=== PATIENT | male | born 1950 | race Caucasian/White ===

== ENCOUNTER 2017-04-18 08:38 | Observation (INO) | payer OTHER ==
[2017-04-18 10:01] LABS: BASO # 0.1 # (0.1-1); BASO % 1.2 % (0-2.0); EOS # 0.1 # (0-4.5); EOS % 3.1 % (0-4.5); LYMPH # 1.5 (8-40); MCH 30.5 pg (25.7-33.7); MCHC 32.6 g/dl (32.0-35.9); MEAN CELL VOLUME 93.6 fl (80-96); MEAN PLT VOLUME 9.6 fl (7.5-11.1); MONO # 0.6 # (3.8-10.2); NEUT # 2.1 # (42.8-82.8); NEUT % 47.4 % (42.8-82.8); PLATELET COUNT 173 K/MM3 (134-434); RDW 13.1 % (11.9-15.9); WHITE BLOOD COUNT 4.5 K/mm3 (4.0-10.0)
--- NOTE | 2017-04-18 10:13 | PDOC ---
*Physical Exam - Vital Signs Last Vital Signs Temp Pulse Resp BP Pulse Ox 97.5 F L 65 18 132/98 100 04/18/17 08:41 04/18/17 08:41 04/18/17 08:41 04/18/17 08:41 04/18/17 08:45 ED Treatment Course - LABORATORY CBC & Chemistry Diagram: 04/18/17 09:50 04/18/17 09:50 - ADDITIONAL ORDERS Additional order review: Laboratory Results 04/18/17 09:50 Sodium Cancelled Potassium Cancelled Chloride Cancelled Carbon Dioxide Cancelled Anion Gap Cancelled BUN Cancelled Creatinine Cancelled Creat Clearance w eGFR Cancelled Random Glucose Cancelled Calcium Cancelled Total Bilirubin Cancelled AST Cancelled ALT Cancelled Alkaline Phosphatase Cancelled Total Protein Cancelled Albumin Cancelled 04/18/17 09:50 RBC 4.74 MCV 93.6 MCHC 32.6 RDW 13.1 MPV 9.6 Neutrophils % 47.4 Lymphocytes % 34.2 Monocytes % 14.1 H Eosinophils % 3.1 Basophils % 1.2 Medical Decision Making - Medical Decision Making 04/18/17 10:13 Pt seen by the Advanced Practice Provider under my direct supervision Ancillary studies reviewed I agree with plan as outlined by the Advanced Practice Provider MEME Elmore *DC/Admit/Observation/Transfer Diagnosis at time of Disposition: Syncope - Discharge Dispostion Condition at time of disposition: Guarded - Referrals - Patient Instructions - Post Discharge Activity
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
[2017-04-18 10:40] LABS: ALBUMIN 3.8 g/dl (3.4-5.0); ANION GAP 10 (8-16); BILIRUBIN,TOTAL 0.6 mg/dL (0.2-1.0); CALCIUM 8.7 mg/dL (8.5-10.1); CO2 24 mmol/L (21-32); CREATININE 1.1 mg/dL (0.7-1.3); GLUCOSE,RANDOM 102 mg/dL (74-106); SGOT/AST 11 U/L (15-37); SGPT/ALT 20 U/L (12-78); TOT PROT 6.6 g/dl (6.4-8.2)
[2017-04-18 10:43] LABS: ALK PHOS 69 U/L (45-117); CPK 77 IU/L (39-308); TROPONIN I < 0.02 ng/ml (0.00-0.05)
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
--- NOTE | 2017-04-18 13:44 | EKG ---
Test Reason : Blood Pressure : / mmHG Vent. Rate : 052 BPM Atrial Rate : 052 BPM P-R Int : 176 ms QRS Dur : 090 ms QT Int : 420 ms P-R-T Axes : 047 035 058 degrees QTc Int : 390 ms MARKED SINUS BRADYCARDIA NO PREVIOUS ECGS AVAILABLE Confirmed by JUNE KENT MD ([id number]) on 04/18/2017 1:44:24 PM Referred By: Confirmed By:JUNE KENT MD
[2017-04-18 17:03] VITALS: BMI 24.4
[2017-04-18 17:14] LABS: INR 1.03 (0.82-1.09); PROTHROMBIN TIME (PATIENT) 11.6 SEC (9.98-11.88)
[2017-04-18] MEDS: HEPARIN NA (PORCINE) 5,000 UNITS/ML 1ML VIAL SQ SCH (17:37)
--- NOTE | 2017-04-18 17:48 | CON.CARD ---
Consult Consult Specialty:: Cardiology Referred by:: Hospitalist Medicine Reason for Consultation:: Syncope - History of Present Illness Chief Complaint: Syncope History of Present Illness: This is 66-year-old male with past medical history of hypertension, hyperlipidemia, BPH, HSV who presented to the emergency department today with prodeomal symptoms of lightheadedness, diaphoresis, flushing feeling followed by syncopal episode witnessed by son with quick return to consciousness. Patient denies chest pain, palpitations, orthopnea, PND, LE edema, change in exercise capacity, positional dizziness, nausea, emesis, abd pain. He reports remote history of micturition syncope. - History Source History Provided By: Patient Limitations to Obtaining History: No Limitations - Past Medical History Cardio/Vascular: Yes: HTN, Hyperlipdemia - Alcohol/Substance Use Hx Alcohol Use: No - Smoking History Smoking history: Former smoker Have you smoked in the past 12 months: No If you are a former smoker, when did you quit?: 5 yrs ago Home Medications - Allergies Allergies/Adverse Reactions: Allergies Allergy/AdvReac Type Severity Reaction Status Date / Time No Known Allergies Allergy Verified 04/18/17 08:41 - Home Medications Home Medications: Ambulatory Orders Escitalopram Oxalate [Lexapro -] 10 mg PO DAILY 04/18/17 Sildenafil Citrate [Viagra] 25 mg PO DAILY PRN 04/18/17 Tamsulosin HCl [Flomax] 0.4 mg PO DAILY 04/18/17 Valacyclovir HCl [Valtrex -] 500 mg PO DAILY 04/18/17 Review of Systems - Review of Systems Neurological: reports: Syncope Vital Signs: Vital Signs Temperature 97.9 F 04/18/17 16:42 Pulse Rate 72 04/18/17 16:42 Respiratory Rate 18 04/18/17 16:42 Blood Pressure 124/80 04/18/17 16:42 O2 Sat by Pulse Oximetry (%) 95 04/18/17 16:42 Constitutional: Yes: No Distress, Calm Neck: Yes: Supple, Other (No response to carotid sinus massage) Respiratory: Yes: Regular, CTA Bilaterally Gastrointestinal: Yes: Normal Bowel Sounds, Soft Cardiovascular: Yes: Regular Rate and Rhythm JVD: No Carotid Bruit: No Heart Sounds: Yes: S1, S2 Edema: No - Other Data Labs, Other Data: CBC, BMP 04/18/17 09:50 04/18/17 09:50 Troponin, BNP 12/22/17 12/22/17 09:43 16:00 Troponin I < 0.02 < 0.02 B-Natriuretic Peptide 12.54 Troponin, BNP 04/18/17 04/18/17 09:43 16:00 Troponin I < 0.02 < 0.02 B-Natriuretic Peptide 12.54 SB @ 52 QTc 390 msec Imaging - Results Chest X-ray: Report Reviewed (NAD) Cat Scan: Report Reviewed (HCT: No acute changes) Problem List - Problems (1) Erectile dysfunction Code(s): N52.9 - MALE ERECTILE DYSFUNCTION, UNSPECIFIED Qualifiers: Erectile dysfunction type: unspecified Qualified Code(s): N52.9 - Male erectile dysfunction, unspecified (2) Syncope Code(s): R55 - SYNCOPE AND COLLAPSE Qualifiers: Syncope type: vasovagal syncope Qualified Code(s): R55 - Syncope and collapse Assessment/Plan 04/18/2017 Echo: Normal biventricular size and fxn, mild MR, TR 1. Syncope with typical prodromal sxs: Vasovagal, neurocardiogenic etiology 2. Hypertension 3. Family h/o premature CAD (Father passed IA in early 50's) 4. Erectile dysfunction 5. BPH 6. Depression P:1. Monitor telemetry to r/o pauses 2. Check orthostasis, gentle hydration, reviewed abortive maneuvers once prodromal sxs experienced 3. Likely for d/c in AM with f/u in office , may consider upright tilt table testing as outpatient to confirm diagnosis 4. Thank you for consultative opportunity
[2017-04-18 18:48] LABS: URINE MARIJUANA THC POSITIVE ng/ml (CUTOFF=50)
[2017-04-19] MEDS: HEPARIN NA (PORCINE) 5,000 UNITS/ML 1ML VIAL SQ SCH ×2 (01:39→09:51)
[2017-04-19 08:06] LABS: EOS # 0.2 # (0-4.5); EOS % 4.6 % (0-4.5); LYMPH # 1.3 (8-40); MCH 30.3 pg (25.7-33.7); MCHC 32.5 g/dl (32.0-35.9); MEAN PLT VOLUME 9.4 fl (7.5-11.1); MONO # 0.5 # (3.8-10.2); NEUT % 50.3 % (42.8-82.8); PLATELET COUNT 156 K/MM3 (134-434); RDW 13.3 % (11.9-15.9)
[2017-04-19] MEDS ORDERED: TAMSULOSIN HCL 0.4 MG CAP.ER.24H (FP) PO SCH (08:30)
[2017-04-19 08:33] LABS: ALBUMIN 3.3 g/dl (3.4-5.0); ANION GAP 8 (8-16); CO2 27 mmol/L (21-32); MAGNESIUM 2.3 mg/dL (1.8-2.4)
[2017-04-19 08:40] LABS: ALK PHOS 65 U/L (45-117); BILIRUBIN,TOTAL 0.7 mg/dL (0.2-1.0); CHOLESTEROL 175 mg/dL (50-200); CREATININE 1.1 mg/dL (0.7-1.3); GLUCOSE,RANDOM 87 mg/dL (74-106); PHOSPHOROUS 3.7 mg/dL (2.5-4.9); SGOT/AST 11 U/L (15-37); SGPT/ALT 19 U/L (12-78); TOT PROT 5.9 g/dl (6.4-8.2)
[2017-04-19] MEDS ORDERED: PT OWN MED DRAWER 7, Y5N ONE (09:45)
[2017-04-19] MEDS ORDERED: ESCITALOPRAM OXALATE 10 MG TABLET (FP) PO SCH (10:00)
[2017-04-19] MEDS ORDERED: valACYclovir HCL 500 MG TABLET (FP) PO SCH (10:00)
--- NOTE | 2017-04-19 10:47 | PN ---
Progress Note, Physician History of Present Illness: Denies recurrent symptoms of near or true syncope, possible 3.74 sec pause on telemetry (asymptomatic) at 04/18 1804. - Current Medication List Current Medications: Active Medications Escitalopram Oxalate (Lexapro -) 10 mg PO DAILY [facility] Last Admin: 04/19/17 09:52 Dose: 5 mg Heparin Sodium (Porcine) (Heparin -) 5,000 unit SQ Q8H-IV [facility] Last Admin: 04/19/17 09:51 Dose: 5,000 unit Tamsulosin HCl (Flomax -) 0.4 mg PO DAILY@0830 [facility] Last Admin: 04/19/17 09:51 Dose: 0.4 mg Valacyclovir HCl (Valtrex -) 500 mg PO DAILY [facility] Last Admin: 04/19/17 09:53 Dose: 250 mg - Objective Vital Signs: Vital Signs Temperature 98.6 F 04/19/17 05:00 Pulse Rate 60 04/19/17 05:00 Respiratory Rate 18 04/19/17 05:00 Blood Pressure 120/86 04/19/17 05:00 O2 Sat by Pulse Oximetry (%) 99 04/18/17 21:00 Constitutional: Yes: No Distress, Calm Neck: Yes: Supple Cardiovascular: Yes: Regular Rate and Rhythm Respiratory: Yes: Regular, CTA Bilaterally Gastrointestinal: Yes: Normal Bowel Sounds, Soft Edema: No Labs: CBC, BMP 04/19/17 05:48 04/19/17 05:48 INR, PTT INR 1.03 (0.82-1.09) 04/18/17 16:00 - ....Imaging EKG: Report Reviewed (Tele: NSR, possible 3.74 sec pause on telemetry ( asymptomatic) at 04/18 18:04) Problem List - Problems (1) Erectile dysfunction Code(s): N52.9 - MALE ERECTILE DYSFUNCTION, UNSPECIFIED Qualifiers: Erectile dysfunction type: unspecified Qualified Code(s): N52.9 - Male erectile dysfunction, unspecified (2) Syncope Code(s): R55 - SYNCOPE AND COLLAPSE Qualifiers: Syncope type: vasovagal syncope Qualified Code(s): R55 - Syncope and collapse (3) Hypertension Code(s): I10 - ESSENTIAL (PRIMARY) HYPERTENSION Qualifiers: Hypertension type: essential hypertension Qualified Code(s): I10 - Essential (primary) hypertension (4) Hyperlipidemia Code(s): E78.5 - HYPERLIPIDEMIA, UNSPECIFIED Qualifiers: Hyperlipidemia type: pure hypercholesterolemia Qualified Code(s): E78.00 - Pure hypercholesterolemia, unspecified; E78.0 - Pure hypercholesterolemia Assessment/Plan 04/18/2017 Echo: Normal biventricular size and fxn, mild MR, TR 1. Syncope with typical prodromal sxs: Vasovagal, neurocardiogenic etiology , r/ o sustained pause 2. Hypertension 3. Family h/o premature CAD (Father passed [place] in early 50's) 4. Erectile dysfunction 5. BPH 6. Depression 7. Hyperlipidemia P:1. Plan for outpatient holter monitoring 2. Mild orthostasis noted, encouraged hydration, reviewed abortive maneuvers once prodromal sxs experienced 3. Continue Altace 10 qd and Zocor 20 qhs 4. May d/c with f/u in office , may consider upright tilt table testing as outpatient to confirm diagnosis
[2017-04-19 10:52] VITALS: BP 137/102; PULSE 61; TEMP 98.2
--- NOTE | 2017-04-19 13:38 | DS ---
Physical Exam: SUBJECTIVE: Patient seen and examined Patient is feels better. No acute event overnight. comfortable. OBJECTIVE: Vital Signs Temperature 98.2 F 04/19/17 09:00 Pulse Rate 61 04/19/17 09:05 Respiratory Rate 16 04/19/17 09:00 Blood Pressure 137/102 04/19/17 09:05 O2 Sat by Pulse Oximetry (%) 99 04/19/17 09:00 PHYSICAL EXAM GENERAL: The patient is awake, alert, and fully oriented, in no acute distress. HEAD: Normal with no signs of trauma. EYES: PERRL, extraocular movements intact, sclera anicteric, conjunctiva clear. ENT: Ears normal, nares patent, oropharynx clear without exudates, moist mucous membranes. NECK: Trachea midline, full range of motion, supple. LUNGS: Breath sounds equal, clear to auscultation bilaterally, no wheezes, no crackles, no accessory muscle use. HEART: Regular rate and rhythm, S1, S2 positive, no murmur appreciated, no rub or gallop. ABDOMEN: Soft, nontender, nondistended, normoactive bowel sounds, no guarding, no rebound, no hepatosplenomegaly, no masses appreciated. EXTREMITIES: 2+ pulses, warm, well-perfused, no edema. NEUROLOGICAL: Cranial nerves II through XII grossly intact. Normal speech, gait is stable. PSYCH: Normal mood, normal affect. SKIN: Warm, dry, normal turgor, no rashes or lesions noted. LABS CBCD WBC 4.0 K/mm3 (4.0-10.0) 04/19/17 05:48 RBC 4.51 M/mm3 (4.00-5.60) 04/19/17 05:48 Hgb 13.7 GM/dL (11.7-16.9) 04/19/17 05:48 Hct 42.0 % (35.4-49) 04/19/17 05:48 MCV 93.0 fl (80-96) 04/19/17 05:48 MCHC 32.5 g/dl (32.0-35.9) 04/19/17 05:48 RDW 13.3 % (11.9-15.9) 04/19/17 05:48 Plt Count 156 K/MM3 (134-434) 04/19/17 05:48 MPV 9.4 fl (7.5-11.1) 04/19/17 05:48 CMP Sodium 144 mmol/L (136-145) 04/19/17 05:48 Potassium 4.2 mmol/L (3.5-5.1) 04/19/17 05:48 Chloride 109 mmol/L (98-107) H 04/19/17 05:48 Carbon Dioxide 27 mmol/L (21-32) 04/19/17 05:48 Anion Gap 8 (8-16) 04/19/17 05:48 BUN 20 mg/dL (7-18) H 04/19/17 05:48 Creatinine 1.1 mg/dL (0.7-1.3) 04/19/17 05:48 Creat Clearance w eGFR > 60 (>60) 04/19/17 05:48 Random Glucose 87 mg/dL (74-106) 04/19/17 05:48 Calcium 9.0 mg/dL (8.5-10.1) 04/19/17 05:48 Total Bilirubin 0.7 mg/dL (0.2-1.0) 04/19/17 05:48 AST 11 U/L (15-37) L 04/19/17 05:48 ALT 19 U/L (12-78) 04/19/17 05:48 Alkaline Phosphatase 65 U/L (45-117) 04/19/17 05:48 Total Protein 5.9 g/dl (6.4-8.2) L 04/19/17 05:48 Albumin 3.3 g/dl (3.4-5.0) L 04/19/17 05:48 CARDIAC ENZYMES Creatine Kinase 77 IU/L (39-308) 04/18/17 09:43 Troponin I < 0.02 ng/ml (0.00-0.05) 04/18/17 16:00 Current Medications Generic Name Dose Route Start Last Admin Trade Name Freq PRN Reason Stop Dose Admin Escitalopram Oxalate 10 mg 04/19/17 10:00 04/19/17 09:52 Lexapro - PO 5 mg DAILY GARC[facility]A Administration Heparin Sodium (Porcine) 5,000 unit 04/18/17 18:00 04/19/17 09:51 Heparin - SQ 5,000 unit Q8H-IV GARC[facility]A Administration Tamsulosin HCl 0.4 mg 04/19/17 08:30 04/19/17 09:51 Flomax - PO 0.4 mg DAILY@0830 G[facility]A Administration Valacyclovir HCl 500 mg 04/19/17 10:00 04/19/17 09:53 Valtrex - PO 250 mg DAILY GARC[facility]A Administration Home Medications Medication Instructions Recorded Escitalopram Oxalate [Lexapro -] 10 mg PO DAILY 04/18/17 Sildenafil Citrate [Viagra] 25 mg PO DAILY PRN 04/18/17 Tamsulosin HCl [Flomax] 0.4 mg PO DAILY 04/18/17 Valacyclovir HCl [Valtrex -] 500 mg PO DAILY 04/18/17 04/18/2017 Echo: Normal biventricular size and fxn, mild MR, TR EKG: Report Reviewed (Tele: NSR, possible 3.74 sec pause on telemetry ( asymptomatic) at 04/18 18:04) HOSPITAL COURSE: Date of Admission:04/18/17 Date of Discharge: 04/19/17 # Acute Syncope with 3.74 sec. pause on the monitor without any symptoms , needs further w/u as an outpatient, to r/o sustained pause, most likely vasovagal, s/p IVF, cardio consult appreciated, echo; Normal LV function, mild TR and mild MR , stress test as an outpatient. carotid duplex reviewed. follow with skiver uppers or linings for further w/u Minutes to complete discharge: 35 Discharge Summary Reason For Visit: SYNCOPE Current Active Problems Erectile dysfunction (Acute) Hyperlipidemia (Acute) Hypertension (Acute) Syncope (Acute) Condition: Guarded - Instructions Referrals: Therese Ramirez MD [Primary Care Provider] - - Home Medications Comprehensive Discharge Medication List: Ambulatory Orders Escitalopram Oxalate [Lexapro -] 10 mg PO DAILY 04/18/17 Sildenafil Citrate [Viagra] 25 mg PO DAILY PRN 04/18/17 Tamsulosin HCl [Flomax] 0.4 mg PO DAILY 04/18/17 Valacyclovir HCl [Valtrex -] 500 mg PO DAILY 04/18/17 This patient is new to me today: No Emergency Visit: Yes ED Registration Date: 04/18/17 Care time: The patient presented to the Emergency Department on the above date and was hospitalized for further evaluation of their emergent condition. Critical Care patient: No - Discharge Referral Referred to [facility] Med P.C.: No
== END 2017-04-19 14:46 | disposition home or self-care (01) ==
LOC: JER 08:38 → JERBED 12:31 → J4W 16:26
PROVIDERS: ADMIT Internal Medicine; ATTEND Internal Medicine
PROC: 3E013GC Introduction of Other Therapeutic Substance into Subcutaneous Tissue, Percutaneous Approach (ICD-10-PCS; principal; 2017-04-18)
DX: R55 Syncope and collapse (principal); I10 Essential (primary) hypertension; E78.5 Hyperlipidemia, unspecified; N40.0 Benign prostatic hyperplasia without lower urinary tract symptoms; A60.00 Herpesviral infection of urogenital system, unspecified; N52.9 Male erectile dysfunction, unspecified
CPT/HCPCS: 36415; 70450-TC; 71020-TC; 80053; 80061; 80307; 82272; 82550; 83036; 83721; 83735; 83880; 84100; 84484; 85025; 85610; 93005; 93010; 93306-TC; 93880-TC; 99285-25; G0378; J1644

== ENCOUNTER 2018-10-12 07:52 | Day surgery (SDC) | payer OTHER | END 2018-10-12 09:20 | disposition home or self-care (01) | LOC: FASU-ENDO 07:52 ==

== ENCOUNTER 2024-03-10 07:27 | Day surgery (SDC) | payer OTHER ==
[2024-03-04 15:57] VITALS: BMI 26.6
[2024-03-10] MEDS ORDERED: PROPOFOL 160 ML ONE (08:00)
[2024-03-10] MEDS ORDERED: LIDOCAINE HCL/PF 2% SDV 5ML VIAL ONE (08:00)
[2024-03-10 09:07] VITALS: RESP 20; TEMP 97.1
[2024-03-10 09:40] VITALS: BP 106/69; PULSE 66
== END 2024-03-10 09:41 | disposition home or self-care (01) ==
LOC: FASU-ENDO 07:27
PROVIDERS: ATTEND Internal Medicine Gastroenterology
PROC: 0DJD8ZZ Inspection of Lower Intestinal Tract, Via Natural or Artificial Opening Endoscopic (ICD-10-PCS; principal; 2024-03-10 08:18)
DX: Z12.11 Encounter for screening for malignant neoplasm of colon (principal); K57.30 Diverticulosis of large intestine without perforation or abscess without bleeding; Z86.0109 Personal history of other colon polyps
CPT/HCPCS: 82962

== ENCOUNTER 2025-01-03 03:35 | Inpatient (IN) | payer OTHER ==
[2025-01-03 03:42] VITALS: RESP 18; BMI 26.6
[2025-01-03] MEDS ORDERED: ACETAMINOPHEN INJECTION 100 ML ONE ×2 (04:16→10:01)
[2025-01-03] MEDS: SODIUM CHLORIDE 0.9% 500 ML INFUS.BAG IV ONE ×2 (04:40→09:11)
[2025-01-03] MEDS: ACETAMINOPHEN 1000 MG/100 ML BAG IVPB ONE (04:40)
[2025-01-03 04:45] LABS: MCHC 33.5 g/dl (32.3-36.5); MEAN CELL VOLUME 93.7 fl (79.0-92.2); MEAN PLT VOLUME 10.3 fl (9.4-12.4); RDW 12.9 % (12.2-16.6)
[2025-01-03 05:20] LABS: GLUCOSE,RANDOM 117.0 mg/dL (74-106); TOT PROT 6.6 g/dl (6.4-8.2)
[2025-01-03 05:22] LABS: CO2 20.0 mmol/L (21-32)
[2025-01-03 05:23] LABS: ALK PHOS 50.0 U/L (40-150)
[2025-01-03 05:26] LABS: CREATININE 1.32 mg/dL (0.55-1.3); SGOT/AST 26.0 U/L (5-34); SGPT/ALT 32.0 U/L (0-55)
[2025-01-03 05:47] LABS: HCV DIAGNOSTIC IN-HOUSE W/RFLX NON-REACTIVE (NONREACTIVE); HIV INTERPRETATION NEGATIVE (NEGATIVE)
[2025-01-03 06:13] LABS: EPI CELLS 1 /uL (0-25.1); HYALINE CASTS 0 /uL (0-3.1); URINE APPEARANCE CLOUDY; URINE BACTERIA 6 /uL (0-1359); URINE BILIRUBIN NEGATIVE (NEGATIVE); URINE COLOR YELLOW; URINE GLUCOSE (UA) NEGATIVE (NEGATIVE); URINE KETONE TRACE (NEGATIVE); URINE LEUK ESTERASE NEGATIVE (NEGATIVE); URINE NITRITE NEGATIVE (NEGATIVE); URINE PROTEIN 1+ (NEGATIVE); URINE RBC 454 /uL (0-23.9); URINE UROBILINOGEN 0.2 mg/dL (0.2-1.0); URINE WBC 5 /uL (0-25.8)
[2025-01-03] MEDS ORDERED: KETOROLAC TROMETHAMINE 15 MG/ML VIAL ONE (07:24)
[2025-01-03] MEDS ORDERED: ONDANSETRON 4 MG/2 ML VIAL ONE ×2 (07:24→11:56)
[2025-01-03] MEDS: morphine CARPU-JECT 4 MG/1 ML DISP.SYRIN IVPUSH ONE (07:30)
[2025-01-03] MEDS: KETOROLAC TROMETHAMINE 15 MG/ML VIAL IVPUSH ONE (07:30)
[2025-01-03] MEDS: ONDANSETRON 4 MG/2 ML VIAL IVPUSH ONE (07:30)
[2025-01-03] MEDS ORDERED: SODIUM CHLORIDE 1,000 ML IV SCH (09:15)
[2025-01-03] MEDS ORDERED: TAMSULOSIN HCL 0.4 MG CAP ONE (10:01)
[2025-01-03] MEDS: ACETAMINOPHEN 1000 MG/100 ML BAG IVPB PRN (10:05)
[2025-01-03] MEDS: TAMSULOSIN HCL 0.4 MG CAP PO SCH (10:05)
[2025-01-03] MEDS: ONDANSETRON 4 MG/2 ML VIAL IVPUSH SCH (12:04)
[2025-01-03 13:44] VITALS: BP 132/84; PULSE 77; TEMP 98.7
[2025-01-03] MEDS ORDERED: MIRTAZAPINE 15 MG TABLET (FP) PO SCH (22:00)
[2025-01-04] MEDS ORDERED: amLODIPine BESYLATE 5 MG TABLET (FP) PO SCH (10:00)
[2025-01-04] MEDS ORDERED: ROSUVASTATIN CA 20 MG TABLET PO SCH (10:00)
[2025-01-04] MEDS ORDERED: ESCITALOPRAM OXALATE 10 MG TABLET PO SCH (10:00)
[2025-01-04] MEDS ORDERED: RAMIPRIL 5 MG CAPSULE PO SCH (10:00)
[2025-01-04] MEDS ORDERED: PATIENT'S OWN MEDICATION (NON-FORMULARY) (Omega-3/Dha/Epa/Fish Oil [Fish Oil 1,000 Mg Soft PO SCH ×2 (10:00)
[2025-01-04] MEDS ORDERED: EZETIMIBE 10 MG TABLET (FP) PO SCH (10:00)
[2025-01-05] MEDS ORDERED: valACYclovir HCL 500 MG TABLET (FP) PO SCH (10:00)
== END 2025-01-03 13:48 | disposition home or self-care (01) | DRG 694 ==
LOC: JER 03:35 → JERBED 08:53 → JER 12:05
PROVIDERS: ADMIT Internal Medicine; ATTEND Internal Medicine
DX: N13.2 Hydronephrosis with renal and ureteral calculous obstruction (principal); E78.5 Hyperlipidemia, unspecified; I10 Essential (primary) hypertension; N40.0 Benign prostatic hyperplasia without lower urinary tract symptoms; F32.9 Major depressive disorder, single episode, unspecified; R73.03 Prediabetes; R10.31 Right lower quadrant pain; E86.0 Dehydration; F12.90 Cannabis use, unspecified, uncomplicated; R31.9 Hematuria, unspecified; N40.1 Benign prostatic hyperplasia with lower urinary tract symptoms; N28.1 Cyst of kidney, acquired
CPT/HCPCS: 36415; 74176-TC; 80053; 81003; 83690; 83735; 85027; 86803; 87086; 87389; 93005; 93010; 99285-25

== ENCOUNTER 2025-01-04 10:49 | Observation (INO) | payer OTHER ==
[2025-01-04] MEDS ORDERED: ACETAMINOPHEN INJECTION 100 ML ONE (11:33)
[2025-01-04] MEDS: ACETAMINOPHEN 1000 MG/100 ML BAG IVPB ONE (12:00)
[2025-01-04] MEDS: SODIUM CHLORIDE 0.9% 500 ML INFUS.BAG IV ONE (12:00)
[2025-01-04] MEDS ORDERED: KETOROLAC TROMETHAMINE 15 MG/ML VIAL ONE (12:06)
[2025-01-04 12:19] LABS: ABSOLUTE IMMATURE GRANULOCYTES 0.02 x10^3/uL (0.0-0.031); BASOPHILS # 0.05 x10^3/uL (0.01-0.08); EOSINOPHIL % 0.6 % (0.8-7.0); EOSINOPHILS # 0.04 x10^3/uL (0.04-0.54); MCHC 33.0 g/dl (32.3-36.5); MEAN CELL VOLUME 94.2 fl (79.0-92.2); MEAN PLT VOLUME 10.7 fl (9.4-12.4); MONOCYTE # 0.70 x10^3/uL (0.30-0.82); MONOCYTE % 10.7 % (5.3-12.2); RDW 12.9 % (12.2-16.6)
[2025-01-04 12:23] LABS: EPI CELLS 0 /uL (0-25.1); HYALINE CASTS 0 /uL (0-3.1); URINE APPEARANCE CLEAR; URINE BACTERIA 1 /uL (0-1359); URINE BILIRUBIN NEGATIVE (NEGATIVE); URINE COLOR YELLOW; URINE GLUCOSE (UA) NEGATIVE (NEGATIVE); URINE KETONE NEGATIVE (NEGATIVE); URINE LEUK ESTERASE NEGATIVE (NEGATIVE); URINE NITRITE NEGATIVE (NEGATIVE); URINE PROTEIN NEGATIVE (NEGATIVE); URINE RBC 511 /uL (0-23.9); URINE UROBILINOGEN 0.2 mg/dL (0.2-1.0); URINE WBC 2 /uL (0-25.8)
[2025-01-04 12:24] LABS: INR 0.93 (0.83-1.09); PROTHROMBIN TIME (PATIENT) 10.2 SEC (9.7-13.0)
[2025-01-04 12:26] LABS: ACTIVATED PTT 30.3 SECONDS (25.2-36.5)
[2025-01-04] MEDS: KETOROLAC TROMETHAMINE 15 MG/ML VIAL IVPUSH ONE (12:34)
[2025-01-04 12:42] LABS: GLUCOSE,RANDOM 107.0 mg/dL (74-106)
[2025-01-04 12:43] LABS: TOT PROT 7.9 g/dl (6.4-8.2)
[2025-01-04 12:44] LABS: CO2 22.0 mmol/L (21-32)
[2025-01-04 12:45] LABS: ALK PHOS 60.0 U/L (40-150)
[2025-01-04 12:48] LABS: CREATININE 1.78 mg/dL (0.55-1.3); SGOT/AST 40.0 U/L (5-34); SGPT/ALT 38.0 U/L (0-55)
[2025-01-04] MEDS: LACTATED RINGERS SOLUTION 1,000 ML/1,000 ML INFUS.BAG IV SCH (13:42)
[2025-01-04 16:33] VITALS: BMI 27.1
[2025-01-04] MEDS: ROSUVASTATIN CA 20 MG TABLET PO SCH (22:00)
[2025-01-05] MEDS: ACETAMINOPHEN 1000 MG/100 ML BAG IVPB PRN (04:12)
[2025-01-05 07:16] LABS: ABSOLUTE IMMATURE GRANULOCYTES 0.01 x10^3/uL (0.0-0.031); BASOPHILS # 0.03 x10^3/uL (0.01-0.08); EOSINOPHIL % 0.0 % (0.8-7.0); EOSINOPHILS # 0.00 x10^3/uL (0.04-0.54); MEAN PLT VOLUME 10.5 fl (9.4-12.4)
[2025-01-05 07:18] LABS: IMMATURE PLATELET FRACTION # 4.30 x10^3/uL; MCHC 33.5 g/dl (32.3-36.5); MEAN CELL VOLUME 92.9 fl (79.0-92.2); MONOCYTE # 0.74 x10^3/uL (0.30-0.82); MONOCYTE % 13.9 % (5.3-12.2); RDW 12.8 % (12.2-16.6)
[2025-01-05 08:40] LABS: CO2 18.0 mmol/L (21-32); CREATININE 1.95 mg/dL (0.55-1.3); GLUCOSE,RANDOM 101.0 mg/dL (74-106)
[2025-01-05] MEDS ORDERED: PROPOFOL 40 ML ONE (08:49)
[2025-01-05] MEDS ORDERED: LIDOCAINE HCL/PF 2% SDV 5ML VIAL ONE ×2 (08:49→08:50)
[2025-01-05] MEDS ORDERED: MIDAZOLAM HCL 2 MG/2 ML SINGLE DOSE VIAL ONE (08:49)
[2025-01-05] MEDS ORDERED: ONDANSETRON 4 MG/2 ML VIAL ONE (08:50)
[2025-01-05] MEDS ORDERED: DEXAMETHASONE SOD PHOSPHATE 4 MG/1 ML VIAL ONE (08:50)
[2025-01-05] MEDS ORDERED: SUCCINYLCHOLINE CHLORIDE 200 MG/10 ML SYRINGE ONE (08:51)
[2025-01-05] MEDS ORDERED: ONDANSETRON 4 MG/2 ML VIAL IVPUSH PRN (09:32)
[2025-01-05] MEDS ORDERED: ASPIRIN COATED 81 MG TABLET.EC PO SCH (10:00)
[2025-01-05] MEDS ORDERED: EZETIMIBE 10 MG TABLET (FP) PO SCH (10:00)
[2025-01-05] MEDS ORDERED: ACETAMINOPHEN 1000 MG/100 ML BAG IVPB PRN (10:00)
[2025-01-05] MEDS ORDERED: ESCITALOPRAM OXALATE 10 MG TABLET PO SCH (10:00)
[2025-01-05] MEDS ORDERED: amLODIPine BESYLATE 5 MG TABLET (FP) PO SCH (10:00)
[2025-01-05] MEDS: LACTATED RINGERS SOLUTION 1,000 ML IV SCH (10:03)
[2025-01-05] MEDS: TAMSULOSIN HCL 0.4 MG CAP PO SCH (10:29)
[2025-01-05] MEDS: LACTATED RINGERS SOLUTION 1,000 ML/1,000 ML INFUS.BAG IV SCH (10:37)
[2025-01-05 12:37] VITALS: BP 144/85; RESP 18
[2025-01-05] MEDS: ESCITALOPRAM OXALATE 10 MG TABLET PO SCH (12:38)
[2025-01-05] MEDS: EZETIMIBE 10 MG TABLET (FP) PO SCH (12:38)
[2025-01-05] MEDS: ASPIRIN COATED 81 MG TABLET.EC PO SCH (12:38)
[2025-01-05] MEDS: amLODIPine BESYLATE 5 MG TABLET (FP) PO SCH (12:38)
[2025-01-05 14:25] VITALS: PULSE 72; TEMP 98
[2025-01-05] MEDS ORDERED: AMOX TR/POT CLAV 500MG/125MG TABLETS (FP) PO SCH (17:30)
[2025-01-05] MEDS ORDERED: ROSUVASTATIN CA 20 MG TABLET PO SCH (22:00)
[2025-01-06] MEDS ORDERED: TAMSULOSIN HCL 0.4 MG CAP PO SCH (08:30)
[2025-01-13 14:07] LABS: CA OXALATE MONOHYDR. 100 % (.); SIZE 8x6 mm (.); WEIGHT 173 mg (.)
== END 2025-01-05 14:34 | disposition home or self-care (01) ==
LOC: JER 10:49 → JERBED 12:20 → J8W 14:58
PROVIDERS: ADMIT Internal Medicine; ATTEND Nurse Practitioner Family
PROC: 3E033NZ Introduction of Analgesics, Hypnotics, Sedatives into Peripheral Vein, Percutaneous Approach (ICD-10-PCS; 2025-01-04)
PROC: 3E0333Z Introduction of Anti-inflammatory into Peripheral Vein, Percutaneous Approach (ICD-10-PCS; 2025-01-04)
PROC: 3E0337Z Introduction of Electrolytic and Water Balance Substance into Peripheral Vein, Percutaneous Approach (ICD-10-PCS; 2025-01-04)
PROC: 0TCB8ZZ Extirpation of Matter from Bladder, Via Natural or Artificial Opening Endoscopic (ICD-10-PCS; principal; 2025-01-05 08:30)
PROC: 0T768DZ Dilation of Right Ureter with Intraluminal Device, Via Natural or Artificial Opening Endoscopic (ICD-10-PCS; 2025-01-05 08:30)
DX: N13.2 Hydronephrosis with renal and ureteral calculous obstruction (principal); N40.0 Benign prostatic hyperplasia without lower urinary tract symptoms; R73.03 Prediabetes; I10 Essential (primary) hypertension; E78.5 Hyperlipidemia, unspecified; R10.31 Right lower quadrant pain; Z90.49 Acquired absence of other specified parts of digestive tract; Z87.891 Personal history of nicotine dependence
CPT/HCPCS: 36415; 74018-TC-FY; 76000-TC-FY; 76775-TC; 80048; 80053; 81003; 82360; 85025; 85610; 85730; 86850; 86900; 86901; 87086; 88300-TC; 94760; 96361; 96365; 96375; 96376; 99285-25; C2617; G0378

== ENCOUNTER 2025-01-17 06:36 | Day surgery (SDC) | payer OTHER ==
[2025-01-14 09:28] VITALS: BMI 26.0
[2025-01-17] MEDS ORDERED: ONDANSETRON 4 MG/2 ML VIAL IVPUSH PRN (10:09)
[2025-01-17] MEDS ORDERED: LACTATED RINGERS SOLUTION 1,000 ML IV SCH (10:15)
[2025-01-17] MEDS ORDERED: MIDAZOLAM HCL 2 MG/2 ML SINGLE DOSE VIAL ONE (11:34)
[2025-01-17] MEDS ORDERED: ONDANSETRON 4 MG/2 ML VIAL ONE (11:34)
[2025-01-17] MEDS ORDERED: PROPOFOL 20 ML ONE (11:34)
[2025-01-17] MEDS ORDERED: DEXAMETHASONE SOD PHOSPHATE 4 MG/1 ML VIAL ONE (11:34)
[2025-01-17] MEDS: ceFAZolin 2 GRAM PREMIX BAG IVPB ONE ×2 (11:52)
[2025-01-17 15:16] VITALS: BP 132/75; PULSE 75; RESP 18; TEMP 97.1
[2025-01-26 22:06] LABS: CA OXALATE MONOHYDR. 100 % (.); SIZE 4x3 mm (.); WEIGHT 20 mg (.)
== END 2025-01-17 15:30 | disposition home or self-care (01) ==
LOC: JASU-SURG 06:36
PROVIDERS: ATTEND Urology
PROC: 0TC08ZZ Extirpation of Matter from Right Kidney, Via Natural or Artificial Opening Endoscopic (ICD-10-PCS; principal; 2025-01-17 11:00)
PROC: 0T768DZ Dilation of Right Ureter with Intraluminal Device, Via Natural or Artificial Opening Endoscopic (ICD-10-PCS; 2025-01-17 11:00)
DX: N20.1 Calculus of ureter (principal)
CPT/HCPCS: 36415; 76000-TC-FY; 82360; 82962; 88300-TC; 94760; C1758; C2617